=== PATIENT | female | born 1990 | race Caucasian/White ===

== ENCOUNTER 2017-11-15 18:55 | Emergency (ER) | payer BC ==
[2017-11-15 19:36] LABS: Bilirubin Negative (Negative); Blood, Urine Negative (Negative); Clarity CLEAR (Clear); Glucose, Urine (Dipstick) Negative (Negative); Leukocyte Negative (Negative); Nitrite Negative (Negative); Protein, Urine (Dipstick) Negative (Neg-Trace); Specific Gravity, Urine 1.003 (1.002-1.036); Urobilinogen 0.2 mg/dL (0.2-1.0)
[2017-11-15 19:37] LABS: Pregnancy Test - Urine (BHCG) POSITIVE (Negative); Pregu Control Background? CLEAR/WHITE (CLR/WHITE); Pregu Control Bar Appear? YES (CONTROL BAR); Specific Gravity 1.003 (1.002-1.036)
[2017-11-15 19:39] LABS: #Eosinphils 0.3 thou/uL (0.0-0.7); #Lymphocytes 2.2 thou/uL (1.20-3.40); #Monocytes 0.5 thou/uL (0.11-0.59); #Neutrophils 6.4 thou/uL (1.40-6.50); %Basophils 0.5 % (0.0-1.0); %Eosinophils 2.7 % (0.0-10.0); %Lymphocytes 23.2 % (21.0-51.0); %Monocytes 5.6 % (0.0-10.0); %Neutrophils 68.1 % (42.0-75.0); Hemoglobin 13.7 g/dL (12.0-16.0); Mean Corpuscular HGB CONC 34.2 g/dL (32.0-36.0); Mean Corpuscular Hemoglobin 31.4 pg (27.0-31.0); Mean Corpuscular Volume 91.7 fL (78.0-98.0); Mean Platelet Volume 7.9 fL (7.4-10.4); Platelet Count 294 thou/uL (130-400); RBC Distribution Width 11.5 % (11.5-14.5); Red Blood Cell (RBC) Count 4.36 mill/uL (4.20-5.40); White Blood Cell (WBC) Count 9.4 thou/uL (4.8-10.8)
[2017-11-15 20:04] LABS: ALT (SGPT) 18 U/L (8-55); AST (SGOT) 16 U/L (5-34); Albumin 4.5 g/dL (3.5-5.0); Alkaline Phosphatase 63 U/L (40-150); Anion Gap 12 mmol/L (10-20); BUN (Urea Nitrogen) 6 mg/dL (7.0-18.7); Bilirubin, Total 0.6 mg/dL (0.2-1.2); Calc. Creatinine Clearance 0 mL/min (70-130); Calcium 9.7 mg/dL (7.8-10.44); Carbon Dioxide 24 mmol/L (22-29); Chloride 104 mmol/L (98-107); Estimated GFR-MDRD Greater than 90; Globulin 3.3 g/dL (2.4-3.5); Glucose 90 mg/dL (70-105); Potassium 3.5 mmol/L (3.5-5.1); Protein, Total 7.8 g/dL (6.0-8.3); Sodium 136 mmol/L (136-145)
--- NOTE | 2017-11-15 21:40 | ULT ---
ULTRASOUND PELVIC ULTRASOUND TRANSVAGINAL DOPPLER DUPLEX: 11/15/17 at 8:48 p.m. HISTORY: 26-year-old female with right sided pelvic pain. TECHNIQUE: Transabdominal transducer used to evaluate intrapelvic contents using the urinary bladder as an acous tic window. Endovaginal transducer used to visualize intrapelvic contents in greater detail. Color fl ow Doppler and Pulsed Doppler spectral waveform analysis of ovaries. FINDINGS: The uterus measures approximately 8.5 x 4 x 6.5 cm. There are dilated subserosal myometrial veins circumferentially around the uterus. No dilated paramet rial veins are visualized. There is an intrauterine gestational sac with mean sac diameter of 0.2 cm. It contains what is probab ly a tiny embryonic pole measuring 0.2 cm corresponding to 5w, 5d gestational age. No heart activity is visualized. No subchorionic hemorrhage. No free fluid in the cul-de-sac. Bilateral ovarian parenchymal detail is poorly visualized. Blood flow is demonstrated in bilateral ovaries by doppler. Right ovary measures approximately 3.5 x 2 x 2.5 cm. Left ovary measures approximately 3.5 x 2 x 2 cm. IMPRESSION: 1. Intrauterine gestational sac containing what appears to be a tiny embryonic pole with crown-r ump length corresponding to 5 weeks, 5 days gestational age. 2. No heart activity is visualized. It may be that it is too early to detect heart a ctivity, or this could represent first trimester intrauterine demise. 3. Recommend serial followup of serum beta HCG levels, and if clinically indicated, followup pel jj and transvaginal ultrasound. MISAEL Hernandez POS: EHSAN
[2017-11-17 19:35] LABS: Chlamydia by PCR Not Detected (NotDetected); GC by PCR Not Detected (NotDetected)
== END 2017-11-15 22:36 | disposition home or self-care (01) ==
LOC: ERS 18:55
DX: O99.89 Other specified diseases and conditions complicating pregnancy, childbirth and the puerperium (principal); R10.31 Right lower quadrant pain
CPT/HCPCS: 36415; 76856; 80053; 81003; 81025; 84702; 85025; 87480; 87491; 87510; 87591; 87660; 90384; 96372

== ENCOUNTER 2018-06-20 23:10 | Day surgery (SDC) | payer BC ==
[2018-06-20 23:59] VITALS: BP 149/95; TEMP 98.1; BMI 29.9
[2018-06-21 00:11] LABS: Amnisure Internal Control QC ACCEPTABLE (ACCEPTABLE)
[2018-06-21 00:21] LABS: Amnisure Test No Membranes Rupture (No Rupture)
[2018-06-21 01:55] LABS: Bilirubin Negative (Negative); Blood, Urine Negative (Negative); Clarity CLEAR (Clear); Glucose, Urine (Dipstick) Negative (Negative); Leukocyte Negative (Negative); Nitrite Negative (Negative); Protein, Urine (Dipstick) Negative (Neg-Trace); Specific Gravity, Urine 1.006 (1.002-1.036); Urobilinogen 0.2 mg/dL (0.2-1.0); pH, Urine 6.5 (5.0-9.0)
[2018-06-21 01:57] LABS: Urine Culture Reflex No No
--- NOTE | 2018-06-21 02:23 | PRG ---
DATE OF SERVICE: 06/21/2018 PRIMARY OB: Dr. Melani Quintero. CHIEF COMPLAINT: Leakage of fluid and abdominal pains. HISTORY OF PRESENT ILLNESS: The patient is a 27-year-old, G2, P1 female with an intrauterine at 36 weeks and 0 days, who presented today with leakage of fluid that occurred about 7 o'clock this evening. She reports that she felt several drops of fluid come out and later subsequently felt some leaking that she thought was her mucus plug. The patient reports since then she has been experiencing stronger uterine contractions and has come for evaluation. The patient denies any recent illness, fever, fall, headache, chest pain, shortness of breath, nausea, vomiting, diarrhea, constipation, hip problems, knee problems, muscle weakness, vaginal bleeding, urinary urgency, or frequency. PAST MEDICAL HISTORY: Negative. PAST SURGICAL HISTORY: She has had a tonsillectomy, 2 right knee surgeries, and a gallbladder surgery. SOCIAL HISTORY: Denies drug, alcohol, or tobacco use. ALLERGIES: NO KNOWN DRUG ALLERGIES. MEDICATIONS: vitamins. OB LABORATORY DATA: Unavailable at time of dictation. REVIEW OF SYSTEMS: Per HPI. PHYSICAL EXAMINATION: VITAL SIGNS: Initial blood pressure was 149/95, heart rate of 83, respiratory rate 18, and temperature 98.1. She has had subsequent pressures ranging from 127/75 to 142/82. GENERAL: She appears to be in no acute distress. She is alert, oriented, cooperative, and pleasant to interact with. HEAD: Normocephalic, atraumatic. LUNGS: Clear to auscultation bilaterally. HEART: Has regular rate and rhythm. ABDOMEN: Gravid and soft, nontender. EXTREMITIES: Nontender with minimal edema. VULVA: Shows some moisture as the patient had been previously examined by the nurse that appeared to have 2 drips from the posterior fourchette. On speculum exam, again the patient appeared to initially have several drops of fluid upon placement of the speculum to the level of cervix. The patient did not have any more visible fluid or leaking even on Valsalva. LABORATORY DATA: heart tracing, NST for abdominal pain and shows a baseline in the 120s with moderate long-term variability, positive 15 x 15 accelerations, no decelerations. Tocometer shows irritability, no regular contraction pattern visible. Just isolated contractions. AmniSure test, initial test is negative. Protein is negative. Fetus has a category 1 tracing and reactive NST. ASSESSMENT AND PLAN: The patient is a 27-year-old G2, P1 female with an intrauterine at 36 weeks with a history of leakage of fluid. Although the AmniSure test is negative, on exam, the patient did initially have some moisture that was liquid and clear. This moisture may represent the remaining aspects of gel used with a vaginal exam by the prior nurse. However, given her history of several episodes of leaking fluid and with these findings, I would like to repeat her AmniSure test an hour after placing the patient in some mild Trendelenburg. In addition, the patient has had some initial elevated blood pressures, though her subsequent pressures have all been within normal range and none of the pressures have reached the severe range. The patient did report she had elevated pressure in the clinic earlier and her workup has not revealed anything else of concern. Fetus has a category 1 tracing. We will be repeating the AmniSure test an hour to an hour and a half and we will monitor her blood pressures during this time. Should the patient experience severe range pressures, we will plan on admitting for delivery and contact Dr. Quintero, however, should she remain in the normal to mild range without symptoms nor of any significant findings on testing, the patient will be discharged to home with followup to Dr. Quintero in the next few days. I will be forwarding a copy of this dictation to her. Job ID: [id number]
[2018-06-21 02:40] LABS: Amnisure Test No Membranes Rupture (No Rupture)
[2018-06-21 02:41] LABS: Amnisure Internal Control QC ACCEPTABLE (ACCEPTABLE)
== END 2018-06-21 03:00 | disposition home or self-care (01) ==
LOC: L&D/OP 23:10
PROVIDERS: ATTEND Student in an Organized Health Care Education/Training Program
DX: O99.89 Other specified diseases and conditions complicating pregnancy, childbirth and the puerperium (principal); N89.8 Other specified noninflammatory disorders of vagina; R10.9 Unspecified abdominal pain; Z3A.36 36 weeks gestation of pregnancy; Z79.899 Other long term (current) drug therapy
CPT/HCPCS: 81003; 84112; 99285

== ENCOUNTER 2018-06-26 09:03 | Day surgery (SDC) | payer BC ==
--- NOTE | 2018-06-26 09:41 | PDOC.LDHP ---
Labor and Delivery H&P Allergies/Adverse Reactions: Allergies Allergy/AdvReac Type Severity Reaction Status Date / Time No Known Allergies Allergy Verified 06/26/18 10:57 - Plan -: HPI: This is a 27 yo at 36.5 wks presenting for contractions and back pain. She states the contractions have been regular every 8 minutes starting about 0300. She denies gush of fluids but has had a slow leakage for a few days. Denies bleeding or discharge. She has felt baby moving often. Patient states she has had a new headache which started at 0100 last night. Described as frontal pressure. Patient states she has had worsening swelling in the hands and feet the last few days. She has felt nauseous as fell. Denies scotoma. History: OB hx: , first deliver with forceps in OR, PP hemorrhage and infection PMH: neg PSH: neg Meds: PNV, rhogam Soc Hx: denies smoking, alcohol, drugs Fam Hx: first child w/ murmur at , mother had hx of Pre-e Blood type: O- Abs screen: + on 12.04.17, negative on 04.28.17 Hep b neg RPR/HIV neg Rubella immune GC/CT neg Quad: neg GBS: neg 1 hr GCT: 124 REVIEW OF SYSTEMS: Gen: no fever, chills, or sweats Neuro: no numbness/tingling, no weakness, + headache Eyes: no visual changes ENT: no hearing changes, no sore throat, no runny nose Resp: no cough, no SOB, no wheeze Card: denies chest pain, no palpitations GI: + nausea, + contractions : no dysuria, no hematuria MSK: no myalgias, no joint pain/stiffness Heme: no easy bruising/bleeding Skin: no rash, no erythema PHYSICAL EXAMINATION: General: NAD, alert and oriented x3 HEENT: PERRLA, EOMI, normal sclera, oropharynx without erythema or exudate Neck: Supple. Full ROM. Heart/Cardiovascular System: RRR, Cap refill < 3 seconds, no rub, no murmur Lungs/Respiratory System: clear to auscultation bilaterally. No increased work of breathing. Room air. Abdomen/Gastro-Intestinal System: no abdominal tenderness, normal bowel sounds, Gravid Extremities: Warm extremities. No cyanosis or edema. Neuro: No gross deficits appreciated. CN 2-12 grossly intact Psychiatry: Awake, Alert and cooperative with exam Skin: No lesions, rashes, or ulcers Musculoskeletal: Full ROM A/P: This is a 27 yo at 36.5 wks # Term - Aminsure sent - SVE: /-3 # Headache - possible migraine: fioricet, 1L NS, reglan, benadryl - Cbc, cmp, urine pr/cr # Rh- - Positive anti-d on 12/04, neg 04/28 Addendum - Attending - Attending Attestation Date/Time: 06/27/18 [id number] I personally evaluated the patient and discussed the management with Dr. Steel I agree with the History, Examination, Assessment and Plan documented above with any addition or exceptions noted below. Pt presented with reports of elevated BP at home, headache and abdominal pains. Pt eval for PIH neg. ALL BP wnl. HEadache resolved with fiorocet, benadryl and reglan. No evidence of labor on repeat exam. Pt discharged home with reassurance. f/o 2days with Dr Quintero
[2018-06-26 10:09] LABS: Amnisure Test No Membranes Rupture (No Rupture)
[2018-06-26 10:10] LABS: Amnisure Internal Control QC ACCEPTABLE (ACCEPTABLE)
[2018-06-26] MEDS ORDERED: diphenhydrAMINE 50 MG/ML VIAL IVP SCH (10:30)
[2018-06-26] MEDS ORDERED: Metoclopramide HCl 10 MG/2 ML VIAL IVP SCH (10:30)
[2018-06-26] MEDS ORDERED: Fioricet 325/50/40 mg Tablet PO SCH (10:30)
[2018-06-26] MEDS ORDERED: Sodium Chloride 0.9% 1,000 ML IV SCH (10:30)
[2018-06-26 10:55] VITALS: BMI 29.9
[2018-06-26 10:58] LABS: Hemoglobin 11.7 g/dL (12.0-16.0); Mean Corpuscular HGB CONC 34.7 g/dL (32.0-36.0); Mean Corpuscular Hemoglobin 31.3 pg (27.0-31.0); Mean Corpuscular Volume 90.2 fL (78.0-98.0); Mean Platelet Volume 8.8 fL (7.4-10.4); Platelet Count 225 thou/uL (130-400); RBC Distribution Width 13.6 % (11.5-14.5); Red Blood Cell (RBC) Count 3.73 mill/uL (4.20-5.40); White Blood Cell (WBC) Count 11.2 thou/uL (4.8-10.8)
[2018-06-26 11:01] LABS: Bilirubin Negative (Negative); Blood, Urine Negative (Negative); Clarity CLOUDY (Clear); Glucose, Urine (Dipstick) Negative (Negative); Leukocyte Negative (Negative); Nitrite Negative (Negative); Protein, Urine (Dipstick) Negative (Neg-Trace); Specific Gravity, Urine 1.008 (1.002-1.036); Urobilinogen 0.2 mg/dL (0.2-1.0)
[2018-06-26 11:05] LABS: Bacteria/HPF Rare-Few HPF (None Seen); Hyaline Casts/LPF 0-3 HYALINE CAST LPF (0-3 Hyaline); Pathc Cast-AUWi Flag 0.54 (0-2.49); RBC/HPF 0-3 HPF (0-3); Squamous Epithelial 0-3 HPF (0-3); WBC/HPF 0-3 HPF (0-3)
[2018-06-26 11:06] LABS: Urine Culture Reflex No No
[2018-06-26] MEDS ORDERED: Ondansetron ODT 4 MG TAB PO PRN (11:09)
[2018-06-26 11:23] LABS: ALT (SGPT) 7 U/L (8-55); AST (SGOT) 10 U/L (5-34); Albumin 3.2 g/dL (3.5-5.0); Alkaline Phosphatase 147 U/L (40-150); Anion Gap 12 mmol/L (10-20); BUN (Urea Nitrogen) Less than 4 mg/dL (7.0-18.7); Bilirubin, Total 0.4 mg/dL (0.2-1.2); Calc. Creatinine Clearance 219 mL/min (70-130); Carbon Dioxide 24 mmol/L (22-29); Estimated GFR-MDRD Greater than 90; Globulin 3.2 g/dL (2.4-3.5); Glucose 91 mg/dL (70-105); Protein, Total 6.4 g/dL (6.0-8.3)
[2018-06-26 11:32] LABS: Chloride 105 mmol/L (98-107); Potassium 3.8 mmol/L (3.5-5.1); Sodium 137 mmol/L (136-145)
--- NOTE | 2018-06-26 12:54 | PDOC.EVN ---
Event Note - Event Note Event Note: Unchanged SVE CBC, CMP WNL All bps WNL Headache resolved after benadryl, reglan, NS 1L Tolerated PO intake fu with Dr Quintero in 2 days
[2018-06-26 13:26] LABS: Creatinine, Urine 47.52 mg/dL (47-110); Protein, Urine Random Quant Less than 10 mg/dL (1-14)
== END 2018-06-26 13:05 | disposition home health service (06) ==
LOC: L&D/OP 09:03
PROVIDERS: ATTEND Student in an Organized Health Care Education/Training Program
DX: O47.03 False labor before 37 completed weeks of gestation, third trimester (principal); O99.89 Other specified diseases and conditions complicating pregnancy, childbirth and the puerperium; N89.8 Other specified noninflammatory disorders of vagina; M54.9 Dorsalgia, unspecified; R51 Headache; Z3A.36 36 weeks gestation of pregnancy; Z79.899 Other long term (current) drug therapy
CPT/HCPCS: 80053; 81001; 82570; 84112; 84156; 85027; 96360; 96361; 96375; 99285; J1200; J2765

== ENCOUNTER 2018-06-28 16:38 | Inpatient (IN) | payer BC ==
--- NOTE | 2018-06-28 15:58 | PDOC.LDHP ---
Labor and Delivery H&P Allergies/Adverse Reactions: Allergies Allergy/AdvReac Type Severity Reaction Status Date / Time No Known Allergies Allergy Verified 06/26/18 10:57 - Plan -: HPI: This is a 27 yo at 37.0 weeks sent over from clinic for elevated blood pressures. Reports a pressure in 170s systolic then in 140s. She does have a headache, states it is similiar to the one she had when she was here two days ago which resolved with fiorcet, benadryl, reglan. She describes it as a pressure. She states it has been coming and going since she left 2 days ago. Denies scotoma, abd pain, sob, or worsening swelling. Denies bleeding or discharge. She has felt baby moving often. Thinks she may have lost mucous plug yesterday. History: OB hx: , first delivery with forceps in OR, PP hemorrhage and infection PMH: neg PSH: neg Meds: PNV, rhogam Soc Hx: denies smoking, alcohol, drugs Fam Hx: first child w/ murmur at , mother had hx of Pre-e Blood type: O- Abs screen: + on 12.04.17, negative on 04.28.17 Hep b neg RPR/HIV neg Rubella immune GC/CT neg Quad: neg GBS: neg 1 hr GCT: 124 REVIEW OF SYSTEMS: Gen: no fever, chills, or sweats Neuro: no numbness/tingling, no weakness, + headache Eyes: no visual changes ENT: no hearing changes, no sore throat, no runny nose Resp: no cough, no SOB, no wheeze Card: denies chest pain, no palpitations GI: denies nausea, + contractions : no dysuria, no hematuria MSK: no myalgias, no joint pain/stiffness Heme: no easy bruising/bleeding Skin: no rash, no erythema PHYSICAL EXAMINATION: General: NAD, alert and oriented x3 HEENT: PERRLA, EOMI, normal sclera, oropharynx without erythema or exudate Neck: Supple. Full ROM. Heart/Cardiovascular System: RRR, Cap refill < 3 seconds, no rub, no murmur Lungs/Respiratory System: clear to auscultation bilaterally. No increased work of breathing. Room air. Abdomen/Gastro-Intestinal System: no abdominal tenderness, normal bowel sounds, Gravid Extremities: Warm extremities. No cyanosis or edema. Neuro: No gross deficits appreciated. CN 2-12 grossly intact Psychiatry: Awake, Alert and cooperative with exam Skin: No lesions, rashes, or ulcers Musculoskeletal: Full ROM A/P: This is a 27 yo at 37.0 wks # Term - SVE: in clinic just prior to arrival - monitoring, monitor labor progress # Headache, elevated bp - will trend BPs, currently 145/80 - Cbc, cmp, urine pr/cr # Rh- - Positive anti-d on 12/04, neg 04/28 Addendum - Attending - Attending Attestation Date/Time: 07/01/18 [id number] I personally evaluated the patient and discussed the management with Dr. Steel. I agree with the History, Examination, Assessment and Plan documented above with any addition or exceptions noted below. Pt 37wks with PIH. WIll admit for IOL.
--- NOTE | 2018-06-28 16:04 | PDOC.EVN ---
Event Note - Event Note Event Note: persist pressures in the 140s systolic Patient is at 37.0 wks, discussed case with Dr. Quintero, will admit for induction
[~2018-06-28 16:38] MED LIST: Acetaminophen 500 MG TAB PO PRN; Bupivacaine/Epinephrine 0.25% 30 ML VIAL ONE; Bupivacaine/Epinephrine 0.5% 10 ML VIAL ONE; Calcium Gluc 4.6 MEQ/10 ML (100 MG/ML) SLOW IVP PRN; Fioricet 325/50/40 mg Tablet PO ONE; Lidocaine 1% (PF) 30 ML VIAL SC PRN; NS / Oxytocin 40 units/1000ml 1,000 ML IV PRN; Ondansetron PF 4 MG/2 ML Vial IVP PRN; Promethazine HCl 25 MG/ML VIAL IM PRN
[2018-06-28 16:50] LABS: Mean Corpuscular HGB CONC 34.8 g/dL (32.0-36.0); Mean Corpuscular Hemoglobin 31.6 pg (27.0-31.0); Mean Corpuscular Volume 90.6 fL (78.0-98.0); Mean Platelet Volume 8.7 fL (7.4-10.4); Platelet Count 224 thou/uL (130-400); RBC Distribution Width 13.9 % (11.5-14.5); Red Blood Cell (RBC) Count 3.82 mill/uL (4.20-5.40); White Blood Cell (WBC) Count 12.2 thou/uL (4.8-10.8)
[2018-06-28 17:07] LABS: ALT (SGPT) 8 U/L (8-55); AST (SGOT) 11 U/L (5-34); Albumin 3.4 g/dL (3.5-5.0); Alkaline Phosphatase 159 U/L (40-150); Anion Gap 13 mmol/L (10-20); BUN (Urea Nitrogen) 4 mg/dL (7.0-18.7); Bilirubin, Total 0.4 mg/dL (0.2-1.2); Calc. Creatinine Clearance 0 mL/min (70-130); Calcium 9.2 mg/dL (7.8-10.44); Carbon Dioxide 25 mmol/L (22-29); Chloride 105 mmol/L (98-107); Estimated GFR-MDRD Greater than 90; Glucose 90 mg/dL (70-105); Protein, Total 6.4 g/dL (6.0-8.3); Sodium 139 mmol/L (136-145)
[2018-06-28 17:22] LABS: HBSAg Index 0.31 S/CO (0-0.99); Hep B Surf Ag Non-Reactive S/CO (NonReactive)
[2018-06-28 17:27] LABS: Syphilis Antibody Nonreactive (Nonreactive); Syphilis Antibody Index 0.04 S/CO (<1.00 Non-Reactive)
[2018-06-28 17:42] LABS: Creatinine, Urine 131.5 mg/dL (47-110)
[2018-06-28] MEDS: Lactated Ringer's 1,000 ML IV SCH ×2 (18:49→22:14)
[2018-06-28] MEDS: NS w/ Oxytocin 10 units 500 ML IV SCH (18:50)
[2018-06-29 02:23] VITALS: BMI 25.1
[2018-06-29] MEDS ORDERED: Fentanyl 4 mcg/Bup 0.1% Cadd 100 ML ONE (04:44)
[2018-06-29] MEDS ORDERED: Eucerin (Mineral Oil/Petrolatum,White) 30 gm Jar TOP PRN (05:59)
[2018-06-29] MEDS ORDERED: Acetaminophen 325 MG TAB PO PRN (05:59)
[2018-06-29] MEDS ORDERED: Naloxone HCl 0.4 mg/ml Vial IVP PRN ×2 (05:59)
[2018-06-29] MEDS ORDERED: ePHEDrine/0.9% NaCl/PF SYRINGE 50 mg/10 ml SLOW IVP PRN (05:59)
[2018-06-29] MEDS ORDERED: diphenhydrAMINE 50 MG/ML VIAL IVP PRN (05:59)
[2018-06-29] MEDS ORDERED: Lactated Ringer's 500 ML IV PRN (05:59)
[2018-06-29] MEDS ORDERED: Promethazine HCl 25 MG/ML VIAL IM PRN (05:59)
[2018-06-29] MEDS ORDERED: Ondansetron PF 4 MG/2 ML Vial IVP PRN ×2 (05:59→13:08)
[2018-06-29] MEDS ORDERED: Fentanyl 4 mcg/Bupivacaine 0.1% Cassette 100 ML EPIDURAL SCH (06:00)
[2018-06-29] MEDS ORDERED: Communication Order-Pharmacy FS SCH (06:00)
[2018-06-29] MEDS: NS w/ Oxytocin 10 units 500 ML IV SCH (07:38)
[2018-06-29] MEDS: Lactated Ringer's 1,000 ML IV SCH (07:39)
--- NOTE | 2018-06-29 07:57 | PDOC.LDPN ---
Labor & Delivery Progress Note - Subjective Subjective: comfortable - Objective Vital signs reviewed and normal: yes Abnormal vital signs: mild range blood pressures General: NAD Uterine fundus: non tender Dilation: 5 Effacement: 75% Station: -2 FHT: category 1 [place] contractions every: q2-5min Plan: pitocin for augmentation -: No sx PIH, PIH labs negative, mild range BP, will mag for severe features. Hx of PPH IV x 2 uterotonics and hemorrhage cart at bedside. Active mgmt third stage of labor.
[2018-06-29] MEDS ORDERED: NS / Oxytocin 40 units/1000ml 1,000 ML ONE (10:50)
--- NOTE | 2018-06-29 12:56 | PDOC.OPDEL ---
OB Operative/Delivery Note Delivery Dr/Surgeon: Leon Assist: n/a Pre-Delivery Diagnosis: medically indicated induction Procedure/Post Delivery Dx: spontaneous vaginal delivery Weeks gestation: 37 Anesthesia: epidural - Findings A Sex: female - 1 min: 9 - 5 min: 9 - Additional Findings/Plan Placenta delivered: spontaneous Repaired Obstetrical Laceration: 1st degree (reapproximated with 2-0 vicryl for hemostasis) Estimated blood loss: 400 Post delivery plan: routine recovery
[2018-06-29] MEDS ORDERED: diphenhydrAMINE 25 MG CAP PO PRN (13:08)
[2018-06-29] MEDS ORDERED: Bisacodyl 10 MG SUPP PR PRN (13:08)
[2018-06-29] MEDS ORDERED: Lanolin Ointment 7 GM TUBE TOP PRN (13:08)
[2018-06-29] MEDS ORDERED: Benzocaine-Menthol 82.5 ML CAN TOP PRN (13:08)
[2018-06-29] MEDS ORDERED: Milk Of Magnesia 30 ML UDCUP PO PRN (13:08)
[2018-06-29] MEDS ORDERED: NS / Oxytocin 40 units/1000ml 1,000 ML IV SCH (13:08)
[2018-06-29] MEDS ORDERED: Preparation H Ointment 28 GM TUBE PR PRN (13:08)
[2018-06-29] MEDS ORDERED: HYDROcodone/Acetaminophen 5/325 mg Tablet PO PRN ×2 (13:08)
[2018-06-29] MEDS ORDERED: Zolpidem Tartrate 5 MG TAB PO PRN (13:08)
[2018-06-29] MEDS ORDERED: Adacel (T-DAP) 0.5 ML SYRINGE IM ONE (13:08)
[2018-06-29] MEDS: Ibuprofen 800 MG TAB PO SCH ×2 (17:46→20:47)
[2018-06-29] MEDS: Ferrous Sulfate 325 MG TAB PO SCH (17:47)
[2018-06-29] MEDS: Docusate Calcium (SURFAK) 240 MG CAP PO SCH (20:47)
--- NOTE | 2018-06-30 00:35 | PDOC.PP ---
Post Progress Note Post Day #: PPD#1 Subjective: Resting, no complaints. PO intake tolerated: yes Flatus: yes Ambulation: yes Vital Signs (12 hours) Temp Pulse Resp BP Pulse Ox 06/29/18 21:40 98.6 F 66 16 130/76 98 06/29/18 16:00 98 06/29/18 15:45 98.4 F 77 18 149/84 H 98 Weight Weight 98.883 kg - Physical Examination General: NAD Respiratory: non-labored breathing Psychiatric: normal affect Result Diagrams: 06/28/18 16:37 06/28/18 16:37 Additional Labs: Post Labs Blood Type O NEGATIVE 06/28/18 16:38 Hep Bs Antigen Non-Reactive S/CO (NonReactive) 06/28/18 16:37 - Assessment/Plan Doing well s/p . Routine PP care.
[2018-06-30] MEDS: Ibuprofen 800 MG TAB PO SCH ×3 (04:17→20:54)
[2018-06-30 08:10] LABS: Hemoglobin 10.9 g/dL (12.0-16.0); Mean Corpuscular HGB CONC 35.2 g/dL (32.0-36.0); Mean Corpuscular Hemoglobin 31.7 pg (27.0-31.0); Mean Corpuscular Volume 90.2 fL (78.0-98.0); Mean Platelet Volume 9.1 fL (7.4-10.4); Platelet Count 219 thou/uL (130-400); Red Blood Cell (RBC) Count 3.43 mill/uL (4.20-5.40); White Blood Cell (WBC) Count 13.9 thou/uL (4.8-10.8)
[2018-06-30] MEDS: Ferrous Sulfate 325 MG TAB PO SCH ×2 (09:30→16:43)
[2018-06-30] MEDS: Docusate Calcium (SURFAK) 240 MG CAP PO SCH ×2 (09:35→20:54)
[2018-06-30] MEDS: Prenatal Vitamin 1 TAB PO SCH (09:35)
[2018-07-01] MEDS: Ibuprofen 800 MG TAB PO SCH ×2 (04:58→13:55)
[2018-07-01] MEDS: Ferrous Sulfate 325 MG TAB PO SCH ×2 (07:10→14:05)
[2018-07-01 08:15] VITALS: BP 147/79; TEMP 97.8
[2018-07-01] MEDS: Docusate Calcium (SURFAK) 240 MG CAP PO SCH (09:38)
[2018-07-01] MEDS: Prenatal Vitamin 1 TAB PO SCH (09:38)
--- NOTE | 2018-07-02 00:56 | DIS ---
DATE OF ADMISSION: 06/28/2018 DATE OF DISCHARGE: 07/01/2018 ADMITTING DIAGNOSES: 1. Intrauterine at 37 weeks. 2. Labor. 3. Gestational hypertension. DISCHARGE DIAGNOSES: 1. Intrauterine at 37 weeks. 2. Labor. 3. Gestational hypertension. 4. Normal spontaneous vaginal delivery. HOSPITAL COURSE: The patient is a 27-year-old G 1, P0 female who presented to Labor and Delivery at 37 weeks gestation with elevated blood pressures, being sent from clinic. She was admitted for gestational hypertension and induced for delivery, resulting in a term spontaneous vaginal delivery. Blood pressures have remained in the normal to mild range. Her course has been uncomplicated. Today is day #2. PHYSICAL EXAMINATION: VITAL SIGNS: Blood pressure this morning 147/90, temperature 99.0, pulse 68, respiratory rate of 16, saturating 97% on room air. GENERAL: She appears to be in no acute distress. She is alert, oriented, cooperative, and pleasant to interact with. : Fundus is firm. EXTREMITIES: Nontender with minimal edema. DISCHARGE INSTRUCTIONS: The patient is being discharged to home with instructions to follow up with Dr. Quintero in 6 weeks or sooner if she experiences fever, increasing pain, or bleeding. Ibuprofen 800 mg #20, has been sent to pharmacy electronically. Job ID: [id number]
== END 2018-07-01 16:03 | disposition home or self-care (01) | DRG 807 ==
LOC: L&D/OP 16:38 → L&D 16:45 → 3SW 06-29 15:50
PROVIDERS: ADMIT Student in an Organized Health Care Education/Training Program; ATTEND Student in an Organized Health Care Education/Training Program
PROC: 10E0XZZ Delivery of Products of Conception, External Approach (ICD-10-PCS; principal; 2018-06-29)
PROC: 3E033VJ Introduction of Other Hormone into Peripheral Vein, Percutaneous Approach (ICD-10-PCS; 2018-06-29)
PROC: 0HQ9XZZ Repair Perineum Skin, External Approach (ICD-10-PCS; 2018-06-29)
DX: O13.4 Gestational [pregnancy-induced] hypertension without significant proteinuria, complicating childbirth (principal); Z37.0 Single live birth; O70.0 First degree perineal laceration during delivery; Z3A.37 37 weeks gestation of pregnancy
CPT/HCPCS: 36415; 51702; 80053; 81001; 81003; 82570; 84112; 84156; 85027; 86780; 86850; 86900; 86901; 87340; 90715; 96360; 96361; 96375; 99285; J1200; J2405; J2590; J2765; J3490